=== PATIENT | male | born 1940 | race African-American/Black ===

== ENCOUNTER 2017-11-22 11:54 | Outpatient (CLI) | payer MEDICARE, OTHER ==
[2017-11-22] MEDS ORDERED: GADOBUTROL 7.5 MMOL/7.5 ML VIAL ONE (12:23)
[2017-11-22] MEDS ORDERED: GADOBUTROL 7.5 MMOL/7.5 ML VIAL IVP ONE (12:49)
--- NOTE | 2017-11-23 07:00 | MRI Report ---
EXAM: MRI BRAIN WITHOUT AND WITH CONTRAST EXAM DATE: 11/22/2017 12:58 PM. CLINICAL HISTORY: Dementia, loss, confusion clinical concern for normal pressure hydrocephalus COMPARISON: None. TECHNIQUE: Multiplanar, multisequence T1-weighted and fluid-sensitive MR sequences of the brain were performed. Sequences optimized for routine evaluation. Other: None. IV Contrast: Yes, 5 mL Gadavist. FINDINGS: Brain Volume: Normal for age. Parenchyma: No evidence of mass or acute infarct There is scattered foci of increased T2 signal invol ving white matter bilateral cerebral hemispheres. There are areas of remote hemorrhage involving righ t occipital and right parietal lobes. No abnormal enhancement. Ventricles/Cisterns: There is severe enlargement of the lateral ventricles. Zoltan's ratio 0.39. Orbits: Symmetric and unremarkable. Sella Turcica: No evidence of mass. IAC: Symmetric and unremarkable. Vasculature: Normal signal flow void is seen in the major arterial structures at the skull base. The dural sinuses are patent and enhance normally. Sinuses: There is paranasal sinus mucosal thickening. No sinus fluid levels. Bones: No focal pathologic appearing marrow signal changes. Other: None. IMPRESSION: 1. No evidence of infarct, mass, or other acute intracranial process. 2. Moderate microvascular white matter disease. 3. Bilateral hippocampal volume loss. (Qualitative) 4. Severe enlargement of lateral ventricles. Configuration is suspicious for normal pressure hydrocep halus. Central volume loss may cause similar appearance. 4. Type. Areas of remote parenchymal hemorrhage involving right occipital and right parietal lobes. [facility] Referring Provider Line: [phone] SITE ID: [id number]
== END 2017-11-22 11:55 | disposition home or self-care (01) ==
LOC: DI 11:54
PROVIDERS: ATTEND Family Medicine
DX: G91.2 (Idiopathic) normal pressure hydrocephalus (principal); F03.90 Unspecified dementia, unspecified severity, without behavioral disturbance, psychotic disturbance, mood disturbance, and anxiety
CPT/HCPCS: 70553; A9585

== ENCOUNTER 2018-02-22 10:45 | Outpatient (CLI) | payer MEDICARE, OTHER ==
--- NOTE | 2018-02-22 22:02 | CONSULTATION NOTE ---
Palliative Care Consultation - Referral Referring Provider: Dr Berenice Atkinson Time of Visit: 02/22/2018. 10:45 - 12:15 Referral setting: Home (Patient is seen in home setting due to taxing and considerable effort required to leave the home secondary to advancing dementia.) Referral Reason: Advancing dementia - Information Sources Records reviewed: Previous records reviewed History/Review of Systems obtained from: Patient, Family Exam limitations: Clinical condition (memory deficits; Alzheimer's dementia) - History of Present Illness Brief History of Present Illness: Thank you, Dr. Atkinson for asking the palliative care consult service to be involved in the care of your patient. I am asked to provide support regarding symptom management, patient and family support, and goals of care. 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 He has advancing dementia, and lives with his at the home of their daughter on [facility]. His symptoms of hopelessness, restlessness, wandering, suicidal ideation brought on by his distress about his worsening dementia have vastly improved since the family started him on a combination of oral cannabis products. Medical History: Alzheimer's dementia, CKD, COPD, HTN, prostate cancer, glaucoma, diverticulosis, abnormal weight loss, multiple pulmonary nodules, sleep disorder, sensorineural hearing loss, h/o tobacco use disorder (50+ years , current nonsmoker) -This patient was referred to Palliative Care because his advancing dementia, increasing agitation, and confusion was extremely stressful on the family. His was exhausted and needed help. -His PCP's previous visit notes describe the patient's significant upset, sadness, verbal aggressiveness, and anxiety regarding his loss of functionality and cognition secondary to advancing dementia. "If he had a pistol he would end his life." It was noted he does not have access to weapons and is not alone ever. -He spoke of going home to [place], where he was born and raised but has not been there except for two visits during his adult life. -All this agitation, anxiety, and distress at his diminished mental capacity, and the stress it placed on his and family, was up until about 2 weeks ago. -His PCP had suggested a trial of Zyprexa, but after reading the black label warning, they opted to not start. -Their daughter, Le, succeeded in convincing her parents to have the patient start cannabis products for help with anxiety and insomnia. -They did some research and found a combination which has made a significant difference in his behaviors, anxiety levels, confusion, and outlook. -This has occurred in the past two weeks and it has made an incredible difference in their daily lives. -In the morning he is using CBD/THC 1000/50mg tincture, dosing is 6.25/0.3mg -In the evening he is using THC (10mg) chewables. -What really made the difference was introducing the THC in the evening -The family spent $300 and it was worth it. -They do not want to use the prescribed Zyprexa, and they are not convinced Namzaric (memantine/donepezil) makes a difference. We discussed and I provided education on the benefits and burdens. -Patient was a smoker for 50+ years; quit 4 years ago. -He used to be on 24 hour oxygen when he lived in [place]. He is no longer on oxygen on [facility]. Medical/Surgical History - Past Medical History Cardiovascular: reports: Hypertension Respiratory: reports: COPD, Other (multiple pulmonary nodules) Neuro: Alzhiemer's GI: reports: Other (diverticulosis) : reports: Renal insuffiency (CKD), Indwelling catheter, Other (Prostate cancer) HEENT: reports: Glaucoma, Chronic hearing loss Psych: reports: Other (anxiety, anger, confusion about loss of independence and declining cognition) - Past Surgical History General: reports: Other (Abdominal hernia 2000. 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 He was born and raised in [place], lived in [place] for 45 years, then in [place] for 17 years. He and his moved to [facility] in Feb 2017 and live with one of their daughters, Le Alvarez, who is and has 4 children. The patient and his , Fatuma, have adult 5 children, 3 of whom are adopted. One lives in [place], 3 in [place], and Le is on [facility]. Family History - Family History Family History Comment/Other: Both of the patient's parents in their 80s; His mother of a heart attack, his father of "old age" or possibly dementia. Medications/Allergies - Medications Home Medications: Ambulatory Orders Medication Instructions Recorded Confirmed Aspirin [Adult Aspirin] 81 mg PO DAILY 02/24/18 02/24/18 Bimatoprost 0.01% Ophth Dops 1 drops LEFTEYE .QHS 02/24/18 02/24/18 [Lumigan 0.01% Ophth Drops] Cannabis Tincture 1 ea PO .QAM PRN MDD 6.25/0.3mg 02/24/18 02/24/18 CBD/THC Fluticasone [Flonase] 1 spray BREANNA DAILY PRN 02/24/18 02/24/18 Latanoprost 0.005% Ophth Drops 1 drops LEFTEYE .QHS 02/24/18 02/24/18 [Xalatan Ophth Drops] Memantine HCl/Donepezil HCl 1 cap PO DAILY 02/24/18 02/24/18 [Namzaric 28 mg-10 mg Capsule] Thc Chewables 10 mg PO QPM PRN 02/24/18 02/24/18 Tiotropium [place] [Spiriva] 18 mcg IH DAILY 02/24/18 02/24/18 amLODIPine [Norvasc] 5 mg PO DAILY 02/24/18 02/24/18 raNITIdine [Zantac] 150 mg PO BID 02/24/18 02/24/18 - Allergies Allergies/Adverse Reactions: Allergies Allergy/AdvReac Type Severity Reaction Status Date / Time No Known Drug Allergies Allergy Verified 02/24/18 17:36 Review of Systems - Constitutional Constitutional: reports: Weight loss (120 lbs around Feb 07, up from 115 lbs. Former baseline 140 lbs.) - Eyes Eyes: reports: Vision loss - Ears, Nose & Throat Ears, Nose & Throat: reports: Hearing loss - Cardiovascular Cardiovascular: reports: Decr. exercise tolerance. denies: Chest pain - Respiratory Respiratory: denies: SOB at rest - Gastrointestinal Gastrointestinal: reports: Other (chronic flatulence) - Genitourinary Genitourinary: denies: Dysuria, Frequency - Musculoskeletal Musculoskeletal: reports: Stiffness. denies: Transfer issues - Neurological Neurological: reports: Memory problems - Psychiatric Psychiatric: reports: Aggitation (history of anxiety, situational sadness about loss and lack of independence.), Behavior disturbances (Episodes of verbal abuse and aggressiveness, improved since starting cannabis) Physical Exam - Vital Signs Temperature: 96.5 F Pulse Rate: 69 O2 Saturation: 98 (room air) Blood Pressure: 130/89 (wrist cuff) - Physical Exam General Appearance: positive: No acute distress, Alert, Other (frail appearing) Eyes Bilateral: positive: No lid inflammation, Conjunctivae nml, No scleral icterus Neck: positive: Trachea midline Cardiovascular: positive: Regular rate & rhythm, No murmur Respiratory: positive: Chest non-tender, No respiratory distress, Diminished throughout Abdomen: positive: Non-tender, Soft, Nml bowel sounds Extremities: positive: Nml appearance, No pedal edema Neurologic/Psychiatric: positive: Mood/affect nml, Disoriented to time Palliative Care - POLST Patient has POLST: Yes POLST Status: DNR, Comfort Measures Anxiety: Comment (Improved x 2 weeks since cannabis regimen of tincture in morning, THC chewables in PM.) Anorexia: Moderate (4-6) (He's a lifetime picky eater.), Weight loss (Yes, but a recent gain from 115 to 120 lbs) Sleep: Sleep improved Constipation: Comment (Denies) Performance Status: Ambulatory. Articulate, but struggles to find words and complete thoughts and sentences. Daughter notes his FAST scale dropped from a 5 to end stage 6 since moving to [facility] in Feb 2017. - Palliative Care Discussion: Their daughter, Le, did a majority of the talking and history. She has recently gone through the loss of her , and went through Hospice with him , so she relates that experience to what her father and mother are currently going through. When the referral to palliative care was made by the PCP, the patient and family were struggling with his agitation, anger, anxiety and sadness about his advancing dementia, and loss of the life and independence he has had. He used to love watching movies and tinkering with things (cars, etc) was his beloved hobby. 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 He states that he has always loved life, and he also thinks his quality of life is excellent right now. He expresses understanding of the pressure his has been under with caregiving and taking care of everything, and appears supportive her finding resources and support to cope. He seems to recognize that things have improved for him and his family with his use of cannabis products. His daughter emphasizes the pressure and responsibility her mother has been under for the past 4 years. The didn't actually get a lot of opportunity to speak for herself, but when she did, her attitude was one of sticking by the patient's side and being together with him. We filled out the POLST form as DNR and comfort care. The patient was quite clear in wanting this, while the daughter did caution that this goes against the spouse's belief system, who is [place] and [place]ism. The spouse did state several times that she supports what her wants, that it is his choice. The spouse has a counselling appointment set up already, likely by the daughter. It is the daughter who seems to be driving this, and it was difficult to assess how the spouse feels about it. We discussed the Palliative Care HYDROMETER TESTER and Equipment Engineer services and they are agreeable to using these resources, particularly the daughter wants this for her mother. They are particularly interested in getting information on DARLIN. They (patient and spouse) are on a limited income, and have previously applied for aid, perhaps when they lived in [place]. It is unclear if it was DARLIN or something else. The spouse reports that they exceeded the income requirement by $100. The daughter is most concerned about caregiving for the patient and the emotional pressure on her mother, although that pressure has significantly lightened with the behavioral changes noted over the past weeks. The family and patient all agree that things are going well right now. The patient appears very calm and reflective of his life and his health. Impression and Recommendations - Palliative Care Impression: 77 year old gentleman with a strong family support system, living with his in the home of one of their daughters. He has advancing dementia which has significantly worsened over the past year, and he has struggled both physically and mentally with the changes in his abilities and losses brought about by dementia, and his family, particularly his need support and resources. His outlook and behaviors have markedly improved just in the past two weeks with the use of cannabis products to help with agitation and sleep. The family would like to continue palliative care support services, including Social Work help with psychosocial issues as well as resource support (DARLIN), and the shaper set up operator for spiritual support for the spouse. Recommendations/Counseling Done: Dementia with h/o behaviors: Improved per report of patient and family, since patient started cannabis products: CBD tincture (6.25mg/0.3mg CBD/THC) in the morning and THC 10mg chewables in the evening. The family is also continuing with Namzaric 28mg/10mg (memantine/donepezil) for the time being ; it may not be very effective at slowing down progress of the disease, but what effect it may have gets lost permanently once it is DC'd. They chose not to use Zyprexa due to the black label warning. HTN: Controlled with amlodipine. BP 130/89 today. Glaucoma: Continue latanoprost and Lumigan. COPD: Asymptomatic, on spiriva daily. He was formerly on 24-hr oxygen, no longer needs it because of [facility] climate and air quality. Advanced care planning: POLST was filled out and signed by patient: DNR and comfort care. Patient was quite clear this is what he wants. Patient's spouse has a contrasting outlook due to her cultural background ([place]ism from the [facility]: "we honor old people") but she verbalized that it is his choice. Referrals were made to Palliative Care HYDROMETER TESTER for psychosocial support of spouse, and patient if desired, and Equipment Engineer for spiritual support of spouse; patient declined. Follow up visit 03/21/18 at 10:00. Time Spent: 90 minutes were spent with more than 50% of the time spent on counseling, education, anticipatory guidance, and care.
== END 2018-02-22 10:46 | disposition home or self-care (01) ==
LOC: PC 10:45
PROVIDERS: ATTEND Nurse Practitioner
DX: Z51.5 Encounter for palliative care (principal); G30.9 Alzheimer's disease, unspecified; F02.81 Dementia in other diseases classified elsewhere, unspecified severity, with behavioral disturbance; H40.9 Unspecified glaucoma; J44.9 Chronic obstructive pulmonary disease, unspecified; N18.9 Chronic kidney disease, unspecified; Z87.891 Personal history of nicotine dependence; R45.1 Restlessness and agitation; F41.9 Anxiety disorder, unspecified; Z85.46 Personal history of malignant neoplasm of prostate; R91.8 Other nonspecific abnormal finding of lung field; Z79.82 Long term (current) use of aspirin; Z66 Do not resuscitate
CPT/HCPCS: 99345

== ENCOUNTER 2018-03-21 10:30 | Outpatient (CLI) | payer MEDICARE, OTHER ==
--- NOTE | 2018-03-21 19:42 | CONSULTATION NOTE ---
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 He has advancing dementia, and lives with his at the home of their daughter on [facility]. His symptoms of hopelessness, restlessness, wandering, suicidal ideation brought on by his distress about his worsening dementia have vastly improved since the family started him on a combination of oral cannabis products. Medical History: Alzheimer's dementia, CKD, COPD, HTN, prostate cancer, glaucoma, diverticulosis, abnormal weight loss, multiple pulmonary nodules, sleep disorder, sensorineural hearing loss, h/o tobacco use disorder (50+ years, current nonsmoker) -After a period of improvement on CBD/THC tincture in the morning, and THC chewables in the evening, the patient's agitation and "sundowning" has worsened. -His daughter says he is "psycho" at nighttime. He generally becomes active and agitated between midnight and 4am. The daughter says he is argumentative and belittling to his during these times. -The continues to spend most of her days with him. When she is out of his sight he is restless and continually looks for her. -At night he sleeps across the bed so he can have body contact with her. -Spouse had a visit with the palliative care SW last week and expressed frustration that the patient needs her around all the time. The SW and spouse were not able to talk privately because the patient insisted on being in the room with them. -We discussed sleep hygiene and approaches to helping them both sleep better at night. However, they have the habit of going to bed quite late, and prior to actually sleeping, they spend a lot of time in the room watching TV. The patient stays awake between 12:00am - 4am and this is when he is most agitated. Part of it is their late night habits, and also he worked the [employer] shift for many years, although that was more than 25 years ago. -Patient has lost a few lbs since last month (117 lbs, from 120 lbs), but he reports that he's never been very interested in food, and has always taken a long time to eat. His daughter says it takes him about 3 hours. He does feed himself. He likes Boost and drinks it at least 3x/day. -Their PCP told them to DC the Namzaric (memantine/donepezil) since it has not been effective. The spouse was concerned about this, we discussed benefits and burdens, and that efficacy and usefulness of these medications is controversial. 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 He was born and raised in [facility], lived in [facility] [place] for 45 years, then in [place] for 17 years. He and his moved to [facility] in Feb 2017 and live with one of their daughters, Le Alvarez, who is (her summer 2016) and has 4 children. The patient and his , Fatuma, have adult 5 children, 3 of whom are adopted. One lives in [place], 3 in [place], and Le is on [facility]. Medications/Allergies - Medications Home Medications: Ambulatory Orders Medication Instructions Recorded Confirmed Aspirin [Adult Aspirin] 81 mg PO DAILY 02/24/18 03/21/18 Cannabis Tincture 1 ea PO .QAM PRN MDD 6.25/0.3mg 02/24/18 03/21/18 CBD/THC Fluticasone [Flonase] 1 spray BREANNA DAILY PRN 02/24/18 03/21/18 Memantine HCl/Donepezil HCl 1 cap PO DAILY 02/24/18 03/21/18 [Namzaric 28 mg-10 mg Capsule] Tiotropium [place] [Spiriva] 18 mcg IH DAILY 02/24/18 03/21/18 amLODIPine [Norvasc] 5 mg PO DAILY 02/24/18 03/21/18 raNITIdine [Zantac] 150 mg PO BID 02/24/18 03/21/18 Brimonidine 0.2% Ophth Drops 1 drops EACHEYE BID 03/21/18 03/21/18 [Alphagan P 0.2% Ophth Drops] OLANZapine [Zyprexa] 5 mg PO QPM 03/21/18 03/21/18 - Allergies Allergies/Adverse Reactions: Allergies Allergy/AdvReac Type Severity Reaction Status Date / Time No Known Drug Allergies Allergy Verified 02/24/18 17:36 Review of Systems - Constitutional Constitutional: reports: Poor appetite, Weight loss (117 lbs today; 120 lbs around 02/07/18, up from 115 lbs. Former baseline weight was 140 lbs.) - Eyes Eyes: reports: Vision loss, Other (glaucoma) - Ears, Nose & Throat Ears, Nose & Throat: reports: Hearing loss - Cardiovascular Cardiovascular: reports: Decr. exercise tolerance. denies: Palpitations, Chest pain - Respiratory Respiratory: denies: Cough, SOB at rest - Gastrointestinal Gastrointestinal: reports: Other (chronic flatulence; improved with cutting out dairy foods) - Genitourinary Genitourinary: denies: Dysuria, Frequency - Musculoskeletal Musculoskeletal: reports: Transfer issues (Self transfers but slowly and with difficulty). denies: Stiffness - Integumentary Integumentary: reports: Dryness - Neurological Neurological: reports: Memory problems, Abnormal gait - Psychiatric Psychiatric: reports: Depression, Anxiety, Aggitation, Other (cannot be from his spouse) - Other Findings Other Findings: Limited ROS Physical Exam - Vital Signs Temperature: 96 F Pulse Rate: 74 O2 Saturation: 95 Blood Pressure: 119/94 - Physical Exam General Appearance: positive: No acute distress, Alert Eyes Bilateral: positive: EOMI, No lid inflammation, Conjunctivae nml, No scleral icterus ENT: positive: No signs of dehydration Neck: positive: Trachea midline Cardiovascular: positive: No murmur, No gallop Respiratory: positive: Diminished throughout, Rhonchi Skin: positive: Dryness Extremities: positive: No pedal edema Neurologic/Psychiatric: positive: Disoriented to time, Flat affect Palliative Care - POLST Patient has POLST: Yes POLST Status: DNR, Comfort Measures Anxiety: Severe (7-10) (at night -- ) Anorexia: Moderate (4-6) - Palliative Care Discussion: After a short period of improvement using CBD/THC products, the patient's anxiety and sundowning has incrased again. He stays awake at night, exacerbated by long-ingrained habits he and his have developed, of staying up for hours in the bed before actually going to sleep around midnight. He actually becomes very active and doesn't fall asleep until around 4am, and then he sleeps late in the morning, plus takes a daytime nap. His is very frustrated because the patient must be around her all the time. She is unable to have any time to herself. Palliative care FRONT ELEVATOR OPERATOR met with her last week, and the spouse stayed with them the entire time. They will try to arrange another meeting out of the house. Also the caustic cresylate shift superintendent will be following up. The spouse has told SW that she and the patient are planning to move to [place], [place], where they raised their children, and will be living near their son. They asked the SW if she knew any low-income housing in that area. The family's greatest concern is the patient's increased agitation and the 's inability to sleep at night because of this; the THC no longer appears to be working. We discussed at length the Zyprexa which he was previously prescribed but had never started due to the 's concern about the Black Box warning. We discussed this, weighed benefits and burdens about the very minimal risks associated. Spouse has agreed to begin Zyprexa in the evening. She is stopping the evening THC, but will continue the CBD/THC tincture in the mornings. We also discussed at length developing new sleep hygiene habits, which their daughter has also been urging them to develop. Impression and Recommendations - Palliative Care Impression: 77 year old gentleman with a strong family support system, living with his in the home of one of their daughters. He has advancing dementia which has significantly worsened over the past year. Cannabis and THC had improved his symptoms of agitation, arguing with his spouse, and anxiety about his condition, but over the past 2 weeks he has declined, particularly at night. The family is willing to try the Zyprexa which they had not wanted to try previously. The family would benefit from continued palliative care support. Recommendations/Counseling Done: Dementia with h/o behaviors: He had a period of a good few weeks when they first started cannabinoids and THC chewables, but his anxiety and agitation have increased, his sundowner's is worse and he is up most of the night It starts around midnight until 4am, when he finally falls asleep. Spouse agreed to try the previously prescribed Zyprexa 2.5mg tab, give 5 mg (2 tabs) daily before bedtime. They will continue the CBD tincture (6.25mg/0.3mg CBD/THC) in the morning. They will DC the [id number] chewables in the PM. The PCP has DC'd Namzaric (memantine/donepezil) due to ineffectiveness, I counseled spouse on benefits and burdens, and lack of evidence of efficacy. She plans to finish up their current bottle. HTN: Controlled with amlodipine. BP 119/94 today. Glaucoma: DC'd latanoprost and Lumigan due to irritation. He was started on Brimonidine tartrate ophthalmic 0.2% 1 drop in both eyes BID COPD: Stable and asymptomatic. Continue Spiriva daily and Advair Diskus 500/50 2 puffs BID. He no longer uses oxygen. Weight loss: 117 lbs today, was 120 lbs last month. Patient has never liked eating and is naturally a very slow eater. Daughter reports it takes him 3 hours to eat. They give him Boost TID, and are limiting dairy due to GI upset. Consider mirtazapine is weight loss continues. Advanced care planning: POLST is DNR and comfort care. Referrals were made to Palliative Care FRONT ELEVATOR OPERATOR has seen the family. Followed up with [employer] for spiritual support of spouse. Patient has declined [employer] support. Follow up next week about Zyprexa. Time Spent: 75 minutes were spent with more than 50% of the time spent on counseling, education, anticipatory guidance, and coordination of care regarding dementia, insomnia, anxiety.
== END 2018-03-21 10:31 | disposition home or self-care (01) ==
LOC: PC 10:30
PROVIDERS: ATTEND Nurse Practitioner
DX: Z51.5 Encounter for palliative care (principal); F03.90 Unspecified dementia, unspecified severity, without behavioral disturbance, psychotic disturbance, mood disturbance, and anxiety; F05 Delirium due to known physiological condition; F41.9 Anxiety disorder, unspecified; R45.1 Restlessness and agitation; J44.9 Chronic obstructive pulmonary disease, unspecified; R63.4 Abnormal weight loss; Z79.82 Long term (current) use of aspirin; R63.0 Anorexia; Z66 Do not resuscitate
CPT/HCPCS: 99350

== ENCOUNTER 2018-04-30 17:53 | Emergency (ER) | payer MEDICARE, OTHER ==
[2018-04-30 18:28] VITALS: BP 117/81
--- NOTE | 2018-04-30 20:07 | ED Physician Documentation ---
PD HPI CHEST PAIN - Stated complaint Stated Complaint: CHEST PX SOA - Chief complaint Chief Complaint: Resp - History obtained from History obtained from: Patient, Family ( and daughter.) - History of Present Illness Associated symptoms: Shortness of air - Additional information Additional information: The patient is a 77-year-old male with history of COPD and dementia, who presents with change in his behavior over the past 2 weeks. His daughter states that he has been short of breath with wheezing, and refuses to take his medicine. He has had cough with sputum production over the past 3 days. There is no history of fever, chest pain, vomiting or diarrhea. His appetite has been normal. He has been incontinent of urine, which is unusual for him. Most distressing to the family is the patient's change in behavior: He is refusing to take his medicine, has become belligerent, and seems more confused than usual. Review of Systems Unable to obtain: Confused, Dementia Constitutional: denies: Fever Cardiac: denies: Chest pain / pressure Respiratory: reports: Cough GI: denies: Abdominal Pain, Vomiting : reports: Incontinent Neurologic: reports: Confused PD PAST MEDICAL HISTORY - Past Medical History Cardiovascular: Hypertension Respiratory: COPD, Other (multiple pulmonary nodules) Neuro: Alzhiemer's Endocrine/Autoimmune: None GI: Other (diverticulosis) : Renal insuffiency (CKD), Indwelling catheter, Other (Prostate cancer) HEENT: Glaucoma, Chronic hearing loss Psych: Other (anxiety, anger, confusion about loss of independence and declining cognition) - Past Surgical History General: Other (Abdominal hernia 2000. Prostatectomy 2003) - Present Medications Home Medications: Ambulatory Orders Medication Instructions Recorded Confirmed Aspirin [Adult Aspirin] 81 mg PO DAILY 02/24/18 03/21/18 Cannabis Tincture 1 ea PO .QAM PRN MDD 6.25/0.3mg 02/24/18 03/21/18 CBD/THC Fluticasone [Flonase] 1 spray BREANNA DAILY PRN 02/24/18 03/21/18 Tiotropium [place] [Spiriva] 18 mcg IH DAILY 02/24/18 03/21/18 amLODIPine [Norvasc] 5 mg PO DAILY 02/24/18 03/21/18 raNITIdine [Zantac] 150 mg PO BID 02/24/18 03/21/18 Brimonidine 0.2% Ophth Drops 1 drops EACHEYE BID 03/21/18 03/21/18 [Alphagan P 0.2% Ophth Drops] Alprazolam [Xanax] 1 mg TID 04/30/18 04/30/18 - Allergies Allergies/Adverse Reactions: Allergies Allergy/AdvReac Type Severity Reaction Status Date / Time No Known Drug Allergies Allergy Verified 04/30/18 18:28 - Living Situation Living Situation: reports: With spouse/s.o. Living Arrangement: reports: At home - Social History Does the pt smoke?: No - POLST Patient has POLST: Yes PD ED PE NORMAL - Vitals Vital signs reviewed: Yes (tachycardic) - General General: Well developed/nourished, Other (Alert, but confused, with limited ability to converse coherently.) - HEENT HEENT: Atraumatic, Pharynx benign - Neck Neck: Supple, no meningeal sign, No adenopathy, No JVD - Cardiac Cardiac: No murmur, Other (rapid rate, regular rhythm.) - Respiratory Respiratory: No respiratory distress, Clear bilaterally - Abdomen Abdomen: Soft, Non tender - Back Back: No CVA TTP - Derm Derm: No rash - Extremities Extremities: No edema, No calf tenderness / cord - Neuro Neuro: No motor deficit, No sensory deficit, Other (Alert, oriented x 2, uncooperative) Eye Opening: Spontaneous Motor: Obeys Commands Verbal: Confused GCS Score: 14 Results - Vitals Vitals: Vital Signs - 24 hr 04/30/18 04/30/18 04/30/18 18:04 19:30 22:48 Temperature 36.9 C Heart Rate 117 H 102 H 110 H Respiratory 20 21 20 Rate Blood Pressure 117/81 H O2 Saturation 94 99 96 Oxygen O2 Source Room air - EKG (time done) 21:06 Rate: Rate (enter#) (105) Rhythm: Sinus tachycardia [place]: Normal QRS: LVH Ischemia: Normal ST segments Computer interpretation: Agree with computer - Labs Labs: Laboratory Tests 04/30/18 04/30/18 04/30/18 20:00 21:20 21:20 WBC 8.0 RBC 5.35 Hgb 15.0 Hct 45.5 MCV 85.0 MCH 28.0 MCHC 33.0 RDW 18.7 H Plt Count 244 MPV 7.9 Neut # (Auto) 5.3 Lymph # (Auto) 1.7 Mckenzie # (Auto) 0.9 Eos # (Auto) 0.1 Baso # (Auto) 0.1 Absolute Nucleated RBC 0.00 Nucleated RBC % 0.0 Sodium 140 Potassium 4.2 Chloride 104 Carbon Dioxide 28 Anion Gap 8.0 BUN 34 H Creatinine 1.3 H Estimated GFR (MDRD) 65 L Glucose 107 H Lactic Acid Calcium 10.4 H Total Bilirubin 0.6 AST 34 ALT 20 Alkaline Phosphatase 87 Troponin I Total Protein 7.4 Albumin 4.6 Globulin 2.8 Albumin/Globulin Ratio 1.6 Lipase 30 Urine Color YELLOW Urine Clarity CLEAR Urine pH 8.5 H Ur Specific [place] 1.015 Urine Protein NEGATIVE Urine Glucose (UA) NEGATIVE Urine Ketones NEGATIVE Urine Occult Blood NEGATIVE Urine Nitrite NEGATIVE Urine Bilirubin NEGATIVE Urine Urobilinogen 0.2 (NORMAL) Ur Leukocyte Esterase NEGATIVE Ur Microscopic Review NOT INDICATED Urine Culture Comments NOT INDICATED 04/30/18 04/30/18 21:20 21:31 WBC RBC Hgb Hct MCV MCH MCHC RDW Plt Count MPV Neut # (Auto) Lymph # (Auto) Mckenzie # (Auto) Eos # (Auto) Baso # (Auto) Absolute Nucleated RBC Nucleated RBC % Sodium Potassium Chloride Carbon Dioxide Anion Gap BUN Creatinine Estimated GFR (MDRD) Glucose Lactic Acid 1.7 Calcium Total Bilirubin AST ALT Alkaline Phosphatase Troponin I < 0.04 Total Protein Albumin Globulin Albumin/Globulin Ratio Lipase Urine Color Urine Clarity Urine pH Ur Specific [place] Urine Protein Urine Glucose (UA) Urine Ketones Urine Occult Blood Urine Nitrite Urine Bilirubin Urine Urobilinogen Ur Leukocyte Esterase Ur Microscopic Review Urine Culture Comments - Rads (name of study) CXR Radiology: Prelim report reviewed, EMP read contemporaneously, See rad report (No focal acute airspace disease.) head CT Radiology: Prelim report reviewed, EMP read contemporaneously, See rad report (No acute intracranial process. Marked enlarged ventricles, stable in appearance compared to the brain MRI from 11/22/2017.) PD MEDICAL DECISION MAKING - ED course Complexity details: reviewed results, re-evaluated patient, considered differential, d/w patient, d/w family ED course: The patient's presentation is significant for progressive dementia with demonstration of aggressive behavior. His laboratory evaluation, including urinalysis, is unremarkable. Noncontrast head CT is also nonrevealing. Electrocardiogram reveals no acute abnormality, and chest x-ray reveals no evidence of pneumonia or other acute cardiopulmonary abnormality. Treatment in the emergency department included administration of normal saline 1 L IV. Zyprexa 5 mg was administered IM initially to calm the patient for blood draw and urinalysis obtaining. An additional 5 mg of Zyprexa was administered to help calm him for head CT. Prior to discharge 1 mg of Xanax was crushed in applesauce and administered orally. He normally takes Xanax 2 or 3 times daily, but has not received it for the past 3 days. I discussed with hs family the results of the workup, and the lack of a specific treatable entity being identified. The family will be moving to [place] later this week, and plans to pursue placement in an assisted living facility. I discussed with them potentially worrisome signs or symptoms that should prompt reevaluation in the emergency department. Departure - Departure Disposition: 01 Home, Self Care Clinical Impression: Aggressive behavior, Progressive dementia with uncertain etiology Condition: Stable Instructions: ED Dementia Caregiver Support Follow-Up: NEW GRAY DO [Primary Care Provider] - Comments: Continue using Xanax as previously prescribed. Follow-up with your primary physician. Call to schedule appointment. Consider pursuing placement in assisted living facility when you move to [place] next week. Return to the emergency department if worsening symptoms. Discharge Date/Time: 05/01/18 01:00
[2018-04-30] MEDS ORDERED: SODIUM CHLORIDE 0.9% 1,000 ML IV ONE (20:17)
[2018-04-30] MEDS ORDERED: ALPRAZolam 0.25 MG TABLET PO STA (20:19)
[2018-04-30] MEDS ORDERED: OLANZapine 10 MG VIAL IM STA ×2 (20:32→22:35)
[2018-04-30 20:43] LABS: BILIRUBIN,URINE NEGATIVE (NEGATIVE); GLUCOSE, URINE (UA) NEGATIVE (NEGATIVE); KETONES,URINE (UA) NEGATIVE (NEGATIVE); LEUKOCYTE ESTERASE, URINE NEGATIVE (NEGATIVE); NITRITE,URINE NEGATIVE (NEGATIVE); OCCULT BLOOD,URINE NEGATIVE (NEGATIVE); PH,URINE 8.5 PH (5.0-7.5); PROTEIN,URINE NEGATIVE (NEGATIVE); UROBILINOGEN,URINE 0.2 (NORMAL) E.U./dL (NORMAL)
[2018-04-30 20:52] LABS: CLARITY,URINE CLEAR (CLEAR)
--- NOTE | 2018-04-30 21:21 | XRAY Report ---
Reason: cough and dyspnea Procedure Date: 04/30/2018 Accession Number: [id number] / [id number] Procedure: XR - Chest 1 View X-Ray CPT Code: 63840 FULL RESULT: EXAM: CHEST RADIOGRAPHY EXAM DATE: 04/30/2018 09:12 PM. CLINICAL HISTORY: Cough and dyspnea. COMPARISON: None. TECHNIQUE: 1 view. FINDINGS: Lungs/Pleura: No consolidative process or focal pneumonia. No blunting of costophrenic angles. Negative for pneumothorax. Mediastinum: Heart size appears normal. Patient is rotated to the left. Other: None. IMPRESSION: No focal acute airspace disease. RAD[facility]
[2018-04-30 21:31] LABS: BASOPHILS # (AUTO) 0.1 10^3/uL (0.0-0.1); BASOPHILS % (AUTO) 0.9 %; EOSINOPHILS # (AUTO) 0.1 10^3/uL (0.0-0.7); LYMPHOCYTES # (AUTO) 1.7 10^3/uL (1.5-3.5); LYMPHOCYTES % (AUTO) 20.9 %; MEAN PLATELET VOLUME 7.9 fL (7.4-11.4); MONOCYTES # (AUTO) 0.9 10^3/uL (0.0-1.0); MONOCYTES % (AUTO) 11.8 %; NEUTROPHILS # (AUTO) 5.3 10^3/uL (1.5-6.6); NEUTROPHILS % (AUTO) 65.4 %; PLT - PLATELET COUNT 244 10^3/uL (130-450); RED BLOOD COUNT 5.35 10^6/uL (4.70-6.10); RED CELL DISTRIBUTION WIDTH 18.7 % (12.0-15.0)
[2018-04-30 21:38] LABS: ALBUMIN 4.6 g/dL (3.2-5.5); ALBUMIN/GLOBULIN RATIO 1.6 (1.0-2.2); BILIRUBIN,TOTAL 0.6 mg/dL (0.2-1.0); CALCIUM 10.4 mg/dL (8.5-10.3); CREATININE 1.3 mg/dL (0.6-1.2); TOTAL PROTEIN 7.4 g/dL (6.7-8.2)
--- NOTE | 2018-04-30 23:23 | CT Report ---
Reason: Altered mental status. Procedure Date: 04/30/2018 Accession Number: [id number] / [id number] Procedure: CT - Head W/O CPT Code: FULL RESULT: EXAM: CT HEAD EXAM DATE: 04/30/2018 11:09 PM. CLINICAL HISTORY: Altered mental status. COMPARISON: BRAIN W/WO 11/22/2017 12:20 PM. TECHNIQUE: Multiaxial CT images were obtained from the foramen magnum to the vertex. Reformats: Sagittal and coronal. IV contrast: None. In accordance with CT protocol optimization, one or more of the following dose reduction techniques were utilized for this exam: automated exposure control, adjustment of mA and/or KV based on patient size, or use of iterative reconstructive technique. FINDINGS: Parenchyma: No intraparenchymal hemorrhage. No evidence of mass, midline shift, or CT findings of acute infarction. Domingo-white differentiation is distinct. Mild diffuse chronic microangiopathic white matter changes are evident. Extraaxial Spaces: Normal for age. No subdural or epidural collections identified. Ventricles: The ventricles are midline and markedly enlarged, stable. Sinuses and Orbits: Postsurgical changes from cataract extractions are noted in the globes. The paranasal and mastoid sinuses are not opacified. Bones: No evidence of fracture or calvarial defect. Other: Mild intracranial atherosclerosis is noted. IMPRESSION: 1. No acute intracranial process. 2. Markedly enlarged ventricles, stable in appearance compared to the brain MRI from 11/22/2017. [facility]
[2018-05-01] MEDS ORDERED: ALPRAZolam 0.25 MG TABLET PO STA (00:39)
== END 2018-05-01 01:00 | disposition home or self-care (01) ==
LOC: ED 17:53
DX: F91.9 Conduct disorder, unspecified (principal); F03.90 Unspecified dementia, unspecified severity, without behavioral disturbance, psychotic disturbance, mood disturbance, and anxiety; I51.7 Cardiomegaly; R00.0 Tachycardia, unspecified; I10 Essential (primary) hypertension; J44.9 Chronic obstructive pulmonary disease, unspecified; Z79.82 Long term (current) use of aspirin
CPT/HCPCS: 36415; 70450; 71045; 80053; 81003; 83605; 83690; 84484; 85025; 93005; 96360; 96361; 96372; 99283; 99284; A9270; 81001; 87086

== ENCOUNTER 2018-05-02 11:30 | Outpatient (CLI) | payer MEDICARE, OTHER ==
--- NOTE | 2018-05-02 17:18 | CONSULTATION NOTE ---
Palliative Care Follow Up - Referral Referring Provider: Dr Granados Time of Visit: 05/02/2018. 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 He has advancing dementia and a history of COPD, and has been living with his at the home of their daughter on [facility], with plans to move down to [place], with his , this month. Medical History: Alzheimer's dementia, CKD, COPD, HTN, prostate cancer, glaucoma, diverticulosis, abnormal weight loss, multiple pulmonary nodules, sleep disorder, sensorineural hearing loss, h/o tobacco use disorder (50+ years, current nonsmoker) -The patient and his had been living in [place], and as reported by the , their daughter asked them to come up to [facility] to live with her and her family earlier this year. The daughter's about 1.5 years ago, and was on Hospice leading up to his . -More recently, the daughter noted that the patient's condition has been declining and asked her parents to leave the home, because her children did not want to relive the experience of their father's , and having their grandfather in the house, while on Hospice, was too much. -The reports this as having been given a 30 day notice by their daughter to find a new place to live. -There are complex family dynamics involved. -The found and secured an apartment in [place] for the two of them and they planned to leave [facility] on 05/02/18, driving down to [place] with their son, who was to drive up to [place] from [place] in a truck. -Then two days prior to their planned departure, they brought him to the ED of [facility], reporting the patient had had a change of behavior over the past two weeks, SOA, wheezing, refusing medications, and a productive cough over the previous 3 days. His appetite was normal, there was no fever, chest pain, vomiting or diarrhea. He became belligerent, refused medications, and was more confused than usual. -In the ED, CXR revealed no evidence of pneumonia or other acute cardiopulmonary abnormality. Noncontrast head CT was negative, but with marked enlarged ventricles, stable in appearance compared to the brain MRI 11/22/2017. Electrocardiogram revealed no acute abnormality. Labs, including urinalysis, were unremarkable. -IN ED he was given 1L normal saline IV, and Zyprexa 5mg was administered IM to calm him for the blood draw and obtaining urinalysis. An additional 5mg of Zyprexa was administered to help calm him for the head CT. Prior to discharge from the ED 1 mg of Xanax was crushed in applesauce and given orally. He had normally been taking Xanax 2-3x/day but had not received it for the previous 3 days. -The ED physician discussed with the family the results of the workup and the lack of a specific treatable entity being identified. -The patient was released late that night, around 1-2am (Tue-Monday 04/30- 05/01), and his family drove him back home. -His reports he was nonambulatory after being in the ED, and she and her daughter had to carry up the stairs to bed. -He has been bed-bound and sleeping since the ED visit. The called me on 05/02 to ask me to come and evaluate him, telling me their plan was to move to [place], by truck, on 05/03. -When I arrived, the patient was lying in bed, and not easily rousable. His eyes were half opened, he was lethargic and initially unresponsive. -When he attempted to speak, it was unintelligible, in word salad. His reports he had been like that since the ED, an abrupt change of status. He had not gotten out of bed since returning from the ED, and had eaten almost nothing except some fruit and tapioca. She had given him one Xanax on Tuesday morning. I was seeing him on Tuesday around noon. -The spouse reported to me that they were planning to leave the next day to drive to [place]. -I repeatedly told her that the patient was not in a condition for any sort of drive, much less a cross-country, 2.5 day trip, and strongly recommended he not be moved. -I also told her he could be transitioning to EOL, and if he were staying here, I would be recommending Hospice evaluation. -Her response is that her son is coming and they have to go. They already have an apartment in [place]. -She wanted to know where Hospice would be, I explained it could come to them at home, but that's when she said her daughter did not want to have Hospice in the home. -The daughter later told me that ED talked about Hospice and offered to keep the patient there while they found a facility to take him, but the mother declined. This conversation is not noted in the ED visit notes. -During the course of my visit the patient eventually did rouse a little bit, and was able to give brief responses to some questions, but he has significantly declined from his previous cognitive baseline. -His was able to slowly feed him some pureed fruit and some liquid. We repositioned him to be more upright in bed, and I provided education on not feeding him or giving him fluids while reclining; instead sit him up as straight as possible to reduce risk of aspiration. 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 He was born and raised in [place], lived in [place] for 45 years, then in [place] for 17 years. He and his moved to [place] in Feb 2017 and live with one of their daughters, Le Alvarez, who is (her summer 2016) and has 4 children. The patient and his , Fatuma, have adult 5 children, 3 of whom are adopted. One lives in [place], 3 in [place], and Le is on [facility]. They are about to move from the house of their daughter in [place] and drive down to [place] with their son, Hammad. They already have obtained an apartment in [place]. Medications/Allergies - Medications Home Medications: Ambulatory Orders Medication Instructions Recorded Confirmed Aspirin [Adult Aspirin] 81 mg PO DAILY 02/24/18 03/21/18 Cannabis Tincture 1 ea PO .QAM PRN MDD 6.25/0.3mg 02/24/18 03/21/18 CBD/THC Fluticasone [Flonase] 1 spray BREANNA DAILY PRN 02/24/18 03/21/18 Tiotropium [place] [Spiriva] 18 mcg IH DAILY 02/24/18 03/21/18 amLODIPine [Norvasc] 5 mg PO DAILY 02/24/18 03/21/18 raNITIdine [Zantac] 150 mg PO BID 02/24/18 03/21/18 Brimonidine 0.2% Ophth Drops 1 drops EACHEYE BID 03/21/18 03/21/18 [Alphagan P 0.2% Ophth Drops] Alprazolam [Xanax] 1 mg TID 04/30/18 04/30/18 - Allergies Allergies/Adverse Reactions: Allergies Allergy/AdvReac Type Severity Reaction Status Date / Time No Known Drug Allergies Allergy Verified 04/30/18 18:28 Review of Systems - Constitutional Constitutional: reports: Fatigue, Weakness, Poor appetite, Weight loss (116.8 lbs (53.07kg) on 04/30/18. Last visit was 117 lbs on 03/21/18; 120 lbs around 02/07/18, up from 115 lbs. Former baselineweight was 140 lbs.). denies: Fever, Chills - Eyes Eyes: reports: Vision loss, Other (glaucoma) - Ears, Nose & Throat Ears, Nose & Throat: reports: Hearing loss - Cardiovascular Cardiovascular: reports: Other (bedbound) - Respiratory Respiratory: reports: Wheezing. denies: SOB at rest - Gastrointestinal Gastrointestinal: reports: Change in bowel habits (bowels moving less due to decreased intake), Poor appetite - Musculoskeletal Musculoskeletal: reports: Limited range of motion, Transfer issues (bedbound x 2 days) - Neurological Neurological: reports: General weakness, Memory problems, Slurred speech - Psychiatric Psychiatric: reports: Aggitation (none since returning from the ED a day and a half ago), Behavior disturbances - Other Findings Other Findings: Limited ROS Physical Exam - Vital Signs Temperature: 96.6 F Pulse Rate: 51 O2 Saturation: 95 Blood Pressure: 120/45 - Physical Exam General Appearance: positive: No acute distress, Lethargic, Nonresponsive (initially; eventually became more responsive) Eyes Bilateral: positive: Conjunctivae nml, Other (patient was lying with eyes half closed, appeared unconscious) ENT: positive: Dry mucous membranes Neck: positive: Trachea midline Cardiovascular: positive: Irregularly irregular, Other (slow pulse) Respiratory: positive: Chest non-tender, No respiratory distress, Diminished throughout. negative: Wheezes Abdomen: positive: Soft Extremities: positive: No pedal edema, Other (muscle wasting of limbs) Neurologic/Psychiatric: positive: Disoriented to place, Disoriented to time, Weakness, Slurred/abnml speech, Unintelligible speech, Flat affect, Other (lethargic initially, eventually some response, but increased confusion from baseline) Palliative Care - POLST Patient has POLST: Yes POLST Status: DNR, Comfort Measures Pain: Comment (Complains and yells out when we reposition him in bed) Tiredness/Fatigue: Severe (7-10) Drowsiness/Sedation: Severe (7-10) Anorexia: Severe (7-10) Sleep: Other (Has been sleeping almost non-stop for past day and a half) Performance Status: Bedbound, lethargic, excessive sleeping, decreased eating, unintelligible speech x 1.5 days - Palliative Care Discussion: The patient's is persistent in her desire to leave as planned (actually one day delay) driving in a truck with her son, and the patient as a passenger. I was very direct in stating my concern for the patient's safety, considering his acute decline in functional and cognitive status and that I do not advise that they move him now, it is putting him at risk. I have told them it could be that he is transitioning to end of life, or it could be a TIA that didn't show up on the head CT, but taking him on a long drive would certainly be traumatic, and there is the risk that he could en route. I spoke in person with the spouse. I spoke with the son Hammad and daughter Le on the telephone. The patient's spouse and her son are going ahead with the plans to leave on 05/03/18. I advised them to keep track of the hospitals en route, have the POLST for with them, hydrate him and feed him well. They telephoned me 05/03 in the morning prior to their departure to report they had found a pressure wound on his coccyx/upper buttocks. I advised Dessitin, keeping the pressure off that part (no "slouching on the sacrum" but lie flat or sit erect), advised finding a U-shaped cushion and the proper way to orient it. Dressings don't work well on that part of the anatomy. The daughter has found a Home Palliative Care/Hospice service in the [facility], [facility]. I told her they can contact us for a referral if needed, and that we would also send the progress notes. Impression and Recommendations - Palliative Care Impression: 77 year old gentleman with advancing dementia and COPD, went to ED two days ago for change in behavior and cough with sputum production. No specific treatable entity was identified and he was released home. He has been bedbound and sleeping/lethargic since returning from the hospital. He may have had a TIA, he may be transitioning. Family is planning to move him to [place] on 05/03 ([id number] drive), Palliative Care strongly recommends they not move him, but they will proceed as planned. Recommendations/Counseling Done: Dementia with h/o behaviors: The family brought patient to ED 04/30/18 for incr eased agitation, combativeness and behaviors, medication refusal, plus cough with sputum. Now sleeping and bedbound since release from ED, after having found no specific treatable condition. Acute status change: Patient is lethargic, with unintelligible speech. He could have had a TIA that wasn't revealed on head CT, or be transitioning to end of life. Patient did take Xanax and two doses of Zyprexa in the ED, which may be contributing to the somnolence. Recommend adequate hydration and continue feeding him as tolerated. Anorexia: 116.8 lbs at ED, same as his weight at the previous Palliative Care visit in March. Spouse is hand-feeding him puree fruit, soft foods like tapioca. Has not been giving him his medications for 2 days. Sacral pressure wound: Family found it on 05/03. Recommend Dessitin, U-shaped cushion available at pharmacies that carry medical equipment/supplies. Did not recommend dressings since they don't work well on this part of the anatomy and can aggravate the wound. Advanced care planning: POLST is DNR and comfort care. Family is going ahead with their plans to move him to [place] on 05/03/18. Their son, Hammad, will drive them in a truck on the 2.5 day trip. Palliative Care DAY HABILITATION SUPERVISOR strongly recommends they not move him, he may be transitioning to end-of-life, or he may have had a TIA. Family has been arranging for a PCP and a Palliative Care/Hospice home service in [place]. [facility] palliative care service will make a referral if needed, as discussed with daughter, Le. Since patient is moving out of area, patient will be discharged from [facility] Palliative Care service. Time Spent: 45 minutes were spent with more than 50% of the time spent on counseling, education, anticipatory guidance, and coordination of care regarding patient's acute change in status and family's plan to move him out of state.
== END 2018-05-02 11:31 | disposition home or self-care (01) ==
LOC: PC 11:30
PROVIDERS: ATTEND Nurse Practitioner
DX: Z51.5 Encounter for palliative care (principal); F03.91 Unspecified dementia, unspecified severity, with behavioral disturbance; R53.83 Other fatigue; R40.0 Somnolence; R63.0 Anorexia; J44.9 Chronic obstructive pulmonary disease, unspecified; Z87.891 Personal history of nicotine dependence; Z79.82 Long term (current) use of aspirin; Z66 Do not resuscitate
CPT/HCPCS: 99349